=== PATIENT | male | born 1965 | race Caucasian/White ===

== ENCOUNTER 2017-02-14 22:45 | Emergency (ER) | payer SELFPAY ==
--- NOTE | 2017-02-14 22:50 | ED.ADGEN ---
Past History Past Medical History: Other Adult General Chief Complaint Chief Complaint ". ..I got like three antibiotics... and I had antibiotics when I was in the hospital at [facility]..but I just wanted it checked and make sure it was getting better...My sugar was 120 this afternoon.." HPI HPI Patient is a 51 year old male who presents with above hx and complaints of abscess and cellulitis of Lt. lst toe. Toe is red but appears to be healing. There is an ulcer on the plantar side of the toe. Capillary refill is equal to other toes. Does have decreased sensation but is equal to other foot and toes. Patient states his glucoses been stable. Pt. has reportedly been compliant with his antibiotics. Patient normally follows with Dr. Mattie Brown [facility]. Review of Systems Review of Systems Constitutional: Denies fever or chills [] Eyes: Denies change in visual acuity, redness, or eye pain [] HENT: Denies nasal congestion or sore throat [] Respiratory: Denies cough or shortness of breath [] Cardiovascular: No additional information not addressed in HPI [] GI: Denies abdominal pain, nausea, vomiting, bloody stools or diarrhea [] : Denies dysuria or hematuria [] Musculoskeletal: Denies back pain or joint pain [] Integument: Denies rash or skin lesions []complains of cellulitis Neurologic: Denies headache, focal weakness or sensory changes [] Endocrine: Denies polyuria or polydipsia [] Family History Family History Diabetes Current Medications Current Medications See nursing for home meds Allergies Allergies No known drug allergies Physical Exam Physical Exam Constitutional: no acute distress, non-toxic appearance. [] HENT: Normocephalic, atraumatic, bilateral external ears normal, oropharynx moist, no oral exudates, nose normal. [] Eyes: PERRLA, EOMI, conjunctiva normal, no discharge. [] Neck: Normal range of motion, no tenderness, supple, no stridor. [] Cardiovascular:Heart rate regular rhythm, no murmur [] Lungs & Thorax: Bilateral breath sounds clear to auscultation [] Abdomen: Bowel sounds normal, soft, no tenderness, no masses, no pulsatile masses. [] Obese Skin: Warm, dry, no erythema, no rash. Left first toe as per history of present illness Back: No tenderness, no CVA tenderness. [] Extremities: No tenderness, no cyanosis, no clubbing, ROM intact, no edema. [ Except ] Lt. lst Toe findings as per HPI Neurologic: Alert and oriented X 3, normal motor function, normal sensory function, no focal deficits noted. [] Psychologic: Affect normal, judgement normal, mood normal. [] Current Patient Data Vital Signs Vital Signs Date Time Temp Pulse Resp B/P (MAP) Pulse Ox O2 Delivery O2 Flow Rate FiO2 02/14/17 22:59 97.9 104 16 96 Room Air EKG EKG [] Radiology/Procedures Radiology/Procedures [] Course & Med Decision Making Course & Med Decision Making Pertinent Labs and Imaging studies reviewed. (See chart for details). Patient to consider warm salt water or Epsom salts soaks, but must apply a and D ointment afterwards. Patient to continue his antibiotics as directed. Patient follow-up primary care. Patient to take a daily aspirin. Patient return if any concerns. Patient continue his good control of his glucose levels [] Final Impression Final Impression 1. Hx. of Abscess and cellulitis[]- lst Toe Lt. Problems: Dragon Disclaimer Dragon Disclaimer This electronic medical record was generated, in whole or in part, using a voice recognition dictation system. DASH WASHINGTON MD Feb 14, 2017 22:50
[2017-02-14 22:59] VITALS: BP 149/83
== END 2017-02-15 00:15 | disposition home or self-care (01) ==
LOC: ER 22:45
DX: L03.032 Cellulitis of left toe (principal); L02.612 Cutaneous abscess of left foot
CPT/HCPCS: 99281

== ENCOUNTER 2018-05-12 03:56 | Emergency (ER) | payer OTHER ==
[~2018-05-12] VITALS: Ht 182.9 cm; Wt 106.6 kg
[~2018-05-12 03:56] MED LIST: MAGN296S9 PO; PEG4000S8 PO
--- NOTE | 2018-05-12 04:20 | PHYS DOC ---
Adult General Chief Complaint Chief Complaint abd pain HPI HPI 53 years old male presented to the emergency department with abdominal pain started 2 days ago pain in his left lower quadrant and epigastric. Discovers been as sharp constant pain rated 7 out of 10 not related to food initially felt is constipated he had milk of magnesium since then had multiple bowel movement however that did not relieve his pain Review of Systems Review of Systems Constitutional: Denies fever or chills [] Eyes: Denies change in visual acuity, redness, or eye pain [] HENT: Denies nasal congestion or sore throat [] Respiratory: Denies cough or shortness of breath [] Cardiovascular: No additional information not addressed in HPI [] GI:no bloody stools or diarrhea [] : Denies dysuria or hematuria [] Musculoskeletal: Denies back pain or joint pain [] Integument: Denies rash or skin lesions [] Neurologic: Denies headache, focal weakness or sensory changes [] Endocrine: Denies polyuria or polydipsia [] All other systems were reviewed and found to be within normal limits, except as documented in this note. Current Medications Current Medications Current Medications Medications (Trade) Dose Ordered Sig/Nat Start Time Stop Time Status Last Admin Dose Admin Info (Do NOT chart on this entry -- for MONITORING) 1 each PRN DAILY PRN 05/12/18 04:45 05/14/18 04:44 Iohexol (Omnipaque 300 Mg/ml) 75 ml 1X ONCE 05/12/18 04:45 05/12/18 04:46 DC 05/12/18 04:58 75 ML Morphine Sulfate (Morphine 4mg Syringe) 4 mg 1X ONCE 05/12/18 04:30 05/12/18 04:34 DC 05/12/18 04:54 4 MG Ondansetron HCl (Zofran) 4 mg 1X ONCE 05/12/18 04:30 05/12/18 04:34 DC 05/12/18 04:55 4 MG Sodium Chloride 1,000 ml @ 1,000 mls/hr 1X ONCE 05/12/18 04:30 05/12/18 05:30 DC 05/12/18 04:55 1,000 MLS/HR Allergies Allergies Allergies Coded Allergies Type Severity Reaction Last Updated Verified peanut Allergy Unknown 03/09/18 Yes Physical Exam Physical Exam Constitutional: Well developed, well nourished, no acute distress, non-toxic appearance. [] HENT: Normocephalic, atraumatic, bilateral external ears normal, oropharynx moist, no oral exudates, nose normal. [] Eyes: PERRLA, EOMI, conjunctiva normal, no discharge. [] Neck: Normal range of motion, no tenderness, supple, no stridor. [] Cardiovascular:Heart rate regular rhythm, no murmur [] Lungs & Thorax: Bilateral breath sounds clear to auscultation [] Abdomen: Bowel sounds normal, soft, tenderness in the left lower quadrant, no masses, no pulsatile masses. [] Skin: Warm, dry, no erythema, no rash. [] Back: No tenderness, no CVA tenderness. [] Extremities: No tenderness, no cyanosis, no clubbing, ROM intact, no edema. [] Neurologic: Alert and oriented X 3, normal motor function, normal sensory function, no focal deficits noted. [] Psychologic: Affect normal, judgement normal, mood normal. [] Current Patient Data Vital Signs Vital Signs Date Time Temp Pulse Resp B/P (MAP) Pulse Ox O2 Delivery O2 Flow Rate FiO2 05/12/18 04:54 18 97 Room Air 05/12/18 03:56 97.3 77 Lab Results Laboratory Tests Test 05/12/18 04:50 White Blood Count 8.9 x10^3/uL (4.0-11.0) Red Blood Count 4.56 x10^6/uL (4.30-5.70) Hemoglobin 13.4 g/dL (13.0-17.5) Hematocrit 40.0 % (39.0-53.0) Mean Corpuscular Volume 88 fL (79-100) Mean Corpuscular Hemoglobin 29 pg (25-35) Mean Corpuscular Hemoglobin Concent 33 g/dL (31-37) Red Cell Distribution Width 13.7 % (11.5-14.5) Platelet Count 324 x10^3/uL (140-400) Neutrophils (%) (Auto) 64 % (31-73) Lymphocytes (%) (Auto) 25 % (24-48) Monocytes (%) (Auto) 9 % (0-9) Eosinophils (%) (Auto) 2 % (0-3) Basophils (%) (Auto) 1 % (0-3) Neutrophils # (Auto) 5.6 x10^3uL (1.8-7.7) Lymphocytes # (Auto) 2.2 x10^3/uL (1.0-4.8) Monocytes # (Auto) 0.8 x10^3/uL (0.0-1.1) Eosinophils # (Auto) 0.2 x10^3/uL (0.0-0.7) Basophils # (Auto) 0.1 x10^3/uL (0.0-0.2) Sodium Level 133 mmol/L (136-145) L Potassium Level 4.3 mmol/L (3.5-5.1) Chloride Level 97 mmol/L (98-107) L Carbon Dioxide Level 27 mmol/L (21-32) Anion Gap 9 (6-14) Blood Urea Nitrogen 25 mg/dL (8-26) Creatinine 1.2 mg/dL (0.7-1.3) Estimated GFR (Cockcroft-Gault) 63.1 BUN/Creatinine Ratio 21 (6-20) H Glucose Level 140 mg/dL (70-99) H Calcium Level 8.8 mg/dL (8.5-10.1) Total Bilirubin 0.3 mg/dL (0.2-1.0) Aspartate Amino Transferase (AST) 21 U/L (15-37) Alanine Aminotransferase (ALT) 26 U/L (16-63) Alkaline Phosphatase 75 U/L (46-116) Total Protein 7.5 g/dL (6.4-8.2) Albumin 3.5 g/dL (3.4-5.0) Albumin/Globulin Ratio 0.9 (1.0-1.7) L Lipase 115 U/L (73-393) EKG EKG [] Radiology/Procedures Radiology/Procedures [] Course & Med Decision Making Course & Med Decision Making Pertinent Labs and Imaging studies reviewed. (See chart for details) at 7 am , ct of abd is pending care transferred to [] Final Impression Final Impression [] Problems: (1) Abdominal pain Qualifiers: Qualified Codes: R10.84 - Generalized abdominal pain Dragon Disclaimer Dragon Disclaimer This electronic medical record was generated, in whole or in part, using a voice recognition dictation system. CHRIS OLIVEIRA MD May 12, 2018 04:20
[2018-05-12] MEDS ORDERED: IV NORMAL SALINE 1,000ML 1,000 ML IV ONE (04:30)
[2018-05-12] MEDS ORDERED: ONDANSETRON PF 4 MG/2 ML VIAL. IV ONE (04:30)
[2018-05-12] MEDS ORDERED: MORPHINE SULFATE 4 MG/ML DISP.SYRIN. IV ONE (04:30)
[2018-05-12] MEDS ORDERED: IOHEXOL 300 MG/ML 75 ML VIAL. IV ONE (04:45)
[2018-05-12] MEDS ORDERED: CONTRAST GIVEN MC PRN (04:45)
[2018-05-12 05:07] LABS: BASO # 0.1 x10^3/uL (0.0-0.2); BASO % 1 % (0-3); EOS # 0.2 x10^3/uL (0.0-0.7); EOS % 2 % (0-3); HEMOGLOBIN 13.4 g/dL (13.0-17.5); LYMPH # 2.2 x10^3/uL (1.0-4.8); LYMPH % 25 % (24-48); MEAN CORPUSCULAR HEMOGLOBIN 29 pg (25-35); MEAN CORPUSCULAR HGB CONC 33 g/dL (31-37); MEAN CORPUSCULAR VOLUME 88 fL (79-100); MONO # 0.8 x10^3/uL (0.0-1.1); MONO % 9 % (0-9); NEUT # 5.6 x10^3uL (1.8-7.7); NEUT % 64 % (31-73); PLATELET COUNT 324 x10^3/uL (140-400); RED BLOOD COUNT 4.56 x10^6/uL (4.30-5.70); RED CELL DISTRIBUTION WIDTH 13.7 % (11.5-14.5); WHITE BLOOD COUNT 8.9 x10^3/uL (4.0-11.0)
[2018-05-12 05:20] LABS: ALBUMIN 3.5 g/dL (3.4-5.0); ALBUMIN/GLOBULIN RATIO 0.9 (1.0-1.7); CALCIUM 8.8 mg/dL (8.5-10.1); CREATININE 1.2 mg/dL (0.7-1.3); GFR 63.1; POTASSIUM 4.3 mmol/L (3.5-5.1); TOTAL BILIRUBIN 0.3 mg/dL (0.2-1.0); TOTAL PROTEIN 7.5 g/dL (6.4-8.2)
--- NOTE | 2018-05-12 06:08 | RAD ---
INDICATION: Omni 300 75cc: Abd pain, nasea, vomiting today. Post cholecystectomy 04/26/18 Hx: Appendectomy COMPARISON: March 09, 2018 TECHNIQUE: Axial CT images obtained through the abdomen and pelvis with contrast. One or more of the following individualized dose reduction techniques were utilized for this examination: 1. Automated exposure control; 2. Adjustment of the mA and/or kV according to patient size; 3. Use of iterative reconstruction technique. FINDINGS: Coronary artery calcific atherosclerosis. Severe calcific atherosclerosis. Enlarged lymph nodes in the upper abdomen. For example in the portacaval region measuring 18 x 37 mm. Subcentimeter low-density lesion at right lobe the liver at dome, too small to characterize. No intrahepatic bile duct dilation. Postcholecystectomy changes. No peripancreatic fluid collection. Spleen unremarkable. Subcentimeter low-density left renal lesion, too small to characterize. No left-sided hydronephrosis. Urinary bladder has minimal urine within it at time of exam. No right-sided hydronephrosis. No dilated loops of bowel to suggest obstruction. Degenerative changes of the spine with osteophyte formation. Multilevel central canal and neural foraminal stenosis. IMPRESSION: 1. No evidence of bowel obstruction. 2. No hydronephrosis. 3. Enlarged lymph nodes at upper abdomen. Nonspecific appearance and could be related to reactive changes including from adjacent hepatic disease but if the patient has any risk factors or history of malignancy a follow-up exam could be obtained in a few months to ensure no growth to exclude neoplastic causes. Electronically signed by: Gregorio Gibson MD (05/12/2018 6:04 AM) [facility]
[2018-05-12 06:31] VITALS: BP 112/73
[2018-05-12] MEDS ORDERED: NAPR500T8 PO (06:36)
[2018-05-12 06:38] LABS: BACTERIA,URINE 0 /HPF (0-FEW); BILIRUBIN,URINE NEG (NEG); CLARITY,URINE CLEAR; COLOR,URINE YELLOW; GLUCOSE,URINE NEG (NEG); NITRITE,URINE NEG (NEG); RBC,URINE OCC /HPF (0-2); SQUAMOUS EPITHELIAL CELL,UR FEW /LPF; UROBILINOGEN,URINE 0.2 mg/dL (0.2 mg/dL); WBC,URINE RARE /HPF (0-4)
== END 2018-05-12 06:31 | disposition home or self-care (01) ==
LOC: ER 03:56 → MERGE 03:56 → ER 06:31
DX: R10.84 Generalized abdominal pain (principal); R59.9 Enlarged lymph nodes, unspecified; R11.2 Nausea with vomiting, unspecified; Z90.49 Acquired absence of other specified parts of digestive tract; Z90.89 Acquired absence of other organs; Z91.010 Allergy to peanuts
CPT/HCPCS: 36415; 74177; 80053; 81001; 83690; 85025; 96361; 96374; 96375; 99284; J2270; J2405; Q9967; J7030

== ENCOUNTER → 2018-06-22 | Outpatient (CLI) | payer OTHER ==
[~2018-06-22] MED LIST changes: +NAPR500T8 PO
== END | disposition home or self-care (01) ==
LOC: SURG 08:41
PROVIDERS: ATTEND Anesthesiology
DX: M47.26 Other spondylosis with radiculopathy, lumbar region (principal); F11.90 Opioid use, unspecified, uncomplicated; G89.4 Chronic pain syndrome; I11.0 Hypertensive heart disease with heart failure; I50.9 Heart failure, unspecified; I25.10 Atherosclerotic heart disease of native coronary artery without angina pectoris; E11.9 Type 2 diabetes mellitus without complications; K21.9 Gastro-esophageal reflux disease without esophagitis; Z79.899 Other long term (current) drug therapy; Z95.5 Presence of coronary angioplasty implant and graft
CPT/HCPCS: 99214

== ENCOUNTER 2019-06-14 19:42 | Emergency (ER) | payer SELFPAY ==
[~2019-06-14] VITALS: Ht 182.9 cm; Wt 102.5 kg
[~2019-06-14 19:42] MED LIST changes: +MAGN296S68 PO; -MAGN296S9 PO
--- NOTE | 2019-06-14 21:20 | RAD ---
PA and lateral chest. HISTORY: Short of breath, cough, congestion, dizziness PA and lateral views were taken of the chest. There is lungs are free of confluent areas of infiltrate. Heart is normal in size. There is no pleural effusion. IMPRESSION: 1. No acute infiltrates. Electronically signed by: Johny Tran MD (06/14/2019 9:17 PM) [facility]
[2019-06-14 21:21] LABS: BASO % 1 % (0-3); EOS % 0 % (0-3); HEMATOCRIT 42.5 % (39.0-53.0); HEMOGLOBIN 14.2 g/dL (13.0-17.5); LYMPH % 13 % (24-48); MEAN CORPUSCULAR HEMOGLOBIN 29 pg (25-35); MEAN CORPUSCULAR HGB CONC 33 g/dL (31-37); MEAN CORPUSCULAR VOLUME 88 fL (79-100); MONO # 1.1 x10^3/uL (0.0-1.1); MONO % 15 % (0-9); NEUT # 5.5 x10^3uL (1.8-7.7); NEUT % 71 % (31-73); PLATELET COUNT 183 x10^3/uL (140-400); RED BLOOD COUNT 4.81 x10^6/uL (4.30-5.70); RED CELL DISTRIBUTION WIDTH 14.6 % (11.5-14.5); WHITE BLOOD COUNT 7.7 x10^3/uL (4.0-11.0)
--- NOTE | 2019-06-14 21:27 | PHYS DOC ---
Past History Past Medical History: Diabetes, High Cholesterol, Hypertension, MA, Sciatica Past Surgical History: Appendectomy, Other Additional Past Surgical Histo: CARDIAC STENTS Alcohol Use: None Drug Use: None Adult General Chief Complaint Chief Complaint: SHORTNESS OF BREATH HPI HPI Patient is a 54-year-old male with multiple medical problems presents with a variety of complaints. He states he's had subjective fever and fatigue a cough that is been nonproductive some myalgias. He's also had some chest discomfort most specifically when he coughs. He denies any hemoptysis. He states he did not have a flu shot this year. He says he is more short of breath when he tries to walk. He states it feels like previous bout of pneumonia but he is also had cardiac stents in the past and he is concerned about the pain he's had in his chest.[] Review of Systems Review of Systems Constitutional: Per history of present illness[] Eyes: Denies change in visual acuity, redness, or eye pain [] HENT: Denies nasal congestion or sore throat [] Respiratory: Reports cough and shortness of breath[] Cardiovascular: No additional information not addressed in HPI [] GI: Reports diarrhea[] : Denies dysuria or hematuria [] Musculoskeletal: Denies back pain or joint pain [] Integument: Denies rash or skin lesions [] Neurologic: Denies headache, focal weakness or sensory changes [] Endocrine: Denies polyuria or polydipsia [] All other systems were reviewed and found to be within normal limits, except as documented in this note. Allergies Allergies Allergies Coded Allergies Type Severity Reaction Last Updated Verified peanut Allergy Unknown 05/14/18 Yes Physical Exam Physical Exam Constitutional: Well developed, well nourished, appears acutely ill. [] HENT: Normocephalic, atraumatic, bilateral external ears normal, oropharynx moist, no oral exudates, nose normal. [] Eyes: PERRLA, EOMI, conjunctiva normal, no discharge. [] Neck: Normal range of motion, no tenderness, supple, no stridor. [] Cardiovascular:Heart rate regular rhythm, no murmur [] Lungs & Thorax: Bilateral rhonchi no wheezes[] Abdomen: Bowel sounds normal, soft, no tenderness, no masses, no pulsatile masses. [] Skin: Warm, dry, no erythema, no rash. [] Back: No tenderness, no CVA tenderness. [] Extremities: No tenderness, no cyanosis, no clubbing, ROM intact, no edema. [] Neurologic: Alert and oriented X 3, normal motor function, normal sensory function, no focal deficits noted. [] Psychologic: Affect normal, judgement normal, mood normal. [] Current Patient Data Vital Signs Vital Signs Date Time Temp Pulse Resp B/P (MAP) Pulse Ox O2 Delivery O2 Flow Rate FiO2 06/14/19 19:50 98.3 88 18 96 Room Air EKG EKG EKG: Normal sinus rhythm rate of [address]-T changes[] Radiology/Procedures Radiology/Procedures [] Impressions: STATUS: REG ER ORD. PHYSICIAN: GAGE ODOM DO REASON: Shortness of air, cough, congestion, dizziness PROCEDURE: CHEST PA & LATERAL PA and lateral chest. HISTORY: Short of breath, cough, congestion, dizziness PA and lateral views were taken of the chest. There is lungs are free of confluent areas of infiltrate. Heart is normal in size. There is no pleural effusion. IMPRESSION: 1. No acute infiltrates. Course & Med Decision Making Course & Med Decision Making Pertinent Labs and Imaging studies reviewed. (See chart for details) [ED course: Evaluation reveals a 54-year-old male who is positive for influenza. I will go ahead and provide him with a prescription for Tamiflu. I reassured him that is EKG did not show any evidence of cardiac ischemia.] Dragon Disclaimer Dragon Disclaimer This electronic medical record was generated, in whole or in part, using a voice recognition dictation system. Departure Departure: Impression: Primary Impression: Influenza A Disposition: HOME, SELF-CARE Condition: STABLE Referrals: PCP,NO (PCP) Patient Instructions: Influenza A (H1N1) Additional Instructions: Return to the emergency department with any new or concerning symptoms. Drink plenty of fluids. Tylenol or Motrin for fever and/or body aches Scripts Oseltamivir Phosphate (TAMIFLU) 75 Mg Capsule 1 CAP PO BID for influenza, #10 CAP Prov: GAGE ODOM DO 06/14/19 GAGE ODOM DO Jun 14, 2019 21:27
[2019-06-14 21:41] LABS: INFLUENZA A PATIENT POSITIVE (NEGATIVE)
[2019-06-14 21:42] LABS: INFLUENZA B PATIENT NEGATIVE (NEGATIVE)
[2019-06-14 21:56] LABS: CALCIUM 8.2 mg/dL (8.5-10.1); CREATININE 1.1 mg/dL (0.7-1.3); GFR 69.5; POTASSIUM 3.7 mmol/L (3.5-5.1)
[2019-06-14] MEDS ORDERED: OSEL75CA PO (21:59)
[2019-06-14 22:00] VITALS: BP 131/78
[2019-06-14 22:09] LABS: ALBUMIN 3.1 g/dL (3.4-5.0); ALBUMIN/GLOBULIN RATIO 0.8 (1.0-1.7); TOTAL BILIRUBIN 0.4 mg/dL (0.2-1.0); TOTAL PROTEIN 7.1 g/dL (6.4-8.2)
--- NOTE | 2019-06-15 00:52 | EKG ---
[address] [address] Test Date: 2019-06-14 Test Time: 20:00:30 Pat Name: BETI RAINES Department: Room: Gender: M Activity Therapy Specialist: : 1965 Requested By: GAGE ODOM Order Number: [id number] Reading MD: Measurements Intervals Bertram Rate: 88 P: 64 MD: 220 QRS: -58 QRSD: 86 T: 47 QT: 332 QTc: 405 Interpretive Statements SINUS RHYTHM ATRIAL PREMATURE COMPLEX(ES) PROLONGED MD INTERVAL ABNORMAL LEFT AXIS DEVIATION R-S TRANSITION ZONE IN V LEADS DISPLACED TO THE LEFT LOW LIMB LEAD VOLTAGE QRS(T) CONTOUR ABNORMALITY CONSISTENT WITH INFERIOR INFARCT PROBABLY OLD ABNORMAL ECG RI6.01 No previous ECG available for comparison
== END 2019-06-14 22:08 | disposition home or self-care (01) ==
LOC: ER 19:42
DX: J10.1 Influenza due to other identified influenza virus with other respiratory manifestations (principal); E11.9 Type 2 diabetes mellitus without complications; E78.00 Pure hypercholesterolemia, unspecified; I10 Essential (primary) hypertension; I25.2 Old myocardial infarction; Z91.018 Allergy to other foods
CPT/HCPCS: 36415; 71046; 80053; 83880; 84484; 85025; 87804; 93005; 99285